=== PATIENT | female | born 1990 | race Caucasian/White ===

== ENCOUNTER 2016-09-03 03:27 | Emergency (ER) | payer MEDICAID, OTHER ==
[~2016-09-03] VITALS: Ht 157.5 cm; Wt 42.5 kg
[~2016-09-03 03:27] MED LIST: BENT20TA PO; ZOFR4TAB PO
[2016-09-03 03:32] VITALS: BP 126/79; PULSE 120; RESP 16; TEMP 97.9; O2SAT 99
[2016-09-03] MEDS ORDERED: SODIUM CHLOR 0.9% 1000 ML INJ 1,000 ML IV ONE ×2 (04:40→07:45)
[2016-09-03 05:01] LABS: AUTOMATED NEUTROPHIL # 10.2 TH/MM3 (1.8-7.7); BASOPHIL # 0.1 TH/MM3 (0-0.2); BASOPHIL % 0.5 % (0.0-2.0); EOSINOPHIL # 0.1 TH/MM3 (0-0.4); EOSINOPHIL % 0.9 % (0.0-4.0); HEMATOCRIT 35.1 % (35.0-46.0); HEMO FLAGS DIFF FINAL; MEAN CORPUSCULAR HEMOGLOBIN 30.1 PG (27.0-34.0); MEAN CORPUSCULAR HGB CONC 33.8 % (32.0-36.0); MONO % 6.6 % (0.0-8.0); PLATELET COUNT 304 TH/MM3 (150-450); RED BLOOD COUNT 3.94 MIL/MM3 (4.00-5.30); RED CELL DISTRIBUTION WIDTH 14.2 % (11.6-17.2); WHITE BLOOD COUNT 15.4 TH/MM3 (4.0-11.0)
[2016-09-03 05:19] LABS: ANION GAP 11 MEQ/L (5-15); AST (GOT) 16 U/L (15-37); BICARBONATE 23.2 MEQ/L (21.0-32.0); BLOOD UREA NITROGEN 7 MG/DL (7-18); CHLORIDE 105 MEQ/L (98-107); GLOMERULAR FILTRATION RATE 139 ML/MIN (>89); POTASSIUM 3.3 MEQ/L (3.5-5.1); SODIUM (NA) 139 MEQ/L (136-145)
[2016-09-03 05:27] LABS: BLOOD, URINE LARGE (NEG); COMMENT (UR) CULTURE INDICATED; CULTURE IF INDICATED CULTURE INDICATED; GLUCOSE,URINE NEG (NEG); KETONE, URINE TRACE mg/dL (NEG); MUCUS URINE FEW /lpf (OCC); NITRITE,URINE NEG (NEG)
[2016-09-03 05:29] LABS: URINE COLOR RED (YELLW/STRAW)
--- NOTE | 2016-09-03 05:34 | PD ---
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 3-4 days later she began to have vaginal bleeding that is continued since then. She reports that there are days when she will pass blood clots. She reports that this is her fourth or fifth . She reports that she has miscarried every . The patient reports having pelvic cramping associated with this. The patient denies any recent fevers, cough, congestion, neck pain, chest pain, shortness of breath, vomiting, diarrhea, urinary symptoms, or neurologic symptoms. LMP: PFSH Past Medical History Narrative Medical The patient's past medical history is significant for asthma, depression, migraine headaches, bipolar disorder Asthma: Yes Depression: Yes Diminished Hearing: No Immunizations Current: Yes Migraines: Yes ?: : 5 Para: 0 Miscarriage: 4 Past Surgical History Narrative Surgical The patient's past surgical history is significant for right elbow ORIF, rectum reconstruction at . Abdominal Surgery: Yes (rectum reconstruction at ) Other Surgery: Yes (abd surgery ( scar)) Social History Alcohol Use: Yes (HEAVY) Tobacco Use: Yes (half a pack a day ) Substance Use: No (cocaine, jerrod, THC ) Allergies-Medications (Allergen,Severity, Reaction): Coded Allergies: Amoxicillin (Verified Allergy, Severe, 09/03/16) Reported Meds & Prescriptions Reported Meds & Active Scripts Active Bentyl (Dicyclomine HCl) 20 Mg Tab 20 Mg PO TID PRN Zofran (Ondansetron HCl) 4 Mg Tab 4 Mg PO Q6HR PRN Review of Systems Except as stated in HPI: all other systems reviewed are Neg General / Constitutional: No: Fever Eyes: No: Visual changes HENT: No: Headaches Cardiovascular: No: Chest Pain or Discomfort Respiratory: No: Shortness of Breath Gastrointestinal: Positive: Abdominal Pain, No: Nausea, Vomiting, Diarrhea Genitourinary: No: Dysuria Musculoskeletal: No: Pain Skin: No Rash Neurologic: No: Weakness Psychiatric: No: Depression Endocrine: No: Polydipsia Hematologic/Lymphatic: No: Easy Bruising Physical Exam Narrative General: The patient is a well-developed well-nourished female in no acute distress. Head and Neck exam: Head is normocephalic atraumatic. Eyes: EOMI, pupils are equal round and reactive to light. Nose: Midline septum with pink mucous membranes Mouth: Dentition unremarkable. Moist mucus membranes. Posterior oropharynx is not erythematous. No tonsillar hypertrophy. Uvula midline. Airway patent. Neck: No palpable lymphadenopathy. No nuchal rigidity. No thyromegaly. Cardiovascular: Sinus tachycardia in the low 100s without murmurs, gallops, or rubs. No pulse deficit to the extremities and simultaneous auscultation and palpation of her radial artery. Lungs: Clear to auscultation bilaterally. No wheezes, rhonchi, or rales. Abdomen: Soft, without tenderness to palpation in all 4 quadrants of the abdomen. No guarding, rebound, or rigidity. Normal bowel sounds are audible. Extremities: No clubbing, cyanosis, or edema. 2+ pulses in all 4 extremities. No calf tenderness on palpation. Back: No spinous process tenderness to palpation. No costovertebral angle tenderness to palpation. Neurologic Exam: Grossly nonfocal. Skin Exam: No rash noted. Intact skin that is warm and dry. Gynecologic exam: The patient was placed in the dorsal lithotomy position. Her external genitalia were examined. She had no evidence of rash or lesions. The speculum was placed into her vagina and the cervix was identified. She had a mild amount of bloody drainage pooling in the posterior vaginal vault. No cervical friability. On Bimanual exam: she has no cervical motion tenderness. Cervix is closed. No adnexal tenderness or prominence noted on palpation. No uterine tenderness or enlargement noted on palpation. Data Data Last Documented VS Vital Signs Date Time Temp Pulse Resp B/P Pulse Ox O2 Delivery O2 Flow Rate FiO2 09/03/16 03:32 97.9 120 16 126/79 99 Orders Beta Hcg (Quant/Titer) (09/03/16 04:40) Complete Blood Count With Diff (09/03/16 04:40) Comprehensive Metabolic Panel (09/03/16 04:40) Gc And Chlamydia Pcr (09/03/16 04:40) Type And Screen (09/03/16 04:40) Wet Prep Profile (09/03/16 04:40) Urinalysis - C+S If Indicated (09/03/16 04:40) Iv Access Insert/Monitor (09/03/16 04:40) Ecg Monitoring (09/03/16 04:40) Sodium Chlor 0.9% 1000 Ml Inj (Ns 1000 M (09/03/16 04:40) Ed Urine Pregnancytest Poc (09/03/16 04:40) Urine Culture (09/03/16 04:45) Us Pelvis (Ques Pr/Ect)W Trans (09/03/16 06:07) Labs Laboratory Tests Test 09/03/16 09/03/16 04:45 05:19 White Blood Count 15.4 TH/MM3 Red Blood Count 3.94 MIL/MM3 Hemoglobin 11.9 GM/DL Hematocrit 35.1 % Mean Corpuscular Volume 89.0 FL Mean Corpuscular Hemoglobin 30.1 PG Mean Corpuscular Hemoglobin 33.8 % Concent Red Cell Distribution Width 14.2 % Platelet Count 304 TH/MM3 Mean Platelet Volume 8.0 FL Neutrophils (%) (Auto) 66.0 % Lymphocytes (%) (Auto) 26.0 % Monocytes (%) (Auto) 6.6 % Eosinophils (%) (Auto) 0.9 % Basophils (%) (Auto) 0.5 % Neutrophils # (Auto) 10.2 TH/MM3 Lymphocytes # (Auto) 4.0 TH/MM3 Monocytes # (Auto) 1.0 TH/MM3 Eosinophils # (Auto) 0.1 TH/MM3 Basophils # (Auto) 0.1 TH/MM3 CBC Comment DIFF FINAL Differential Comment Urine Color RED Urine Turbidity HAZY Urine pH 5.0 Urine Specific [place] 1.020 Urine Protein 30 mg/dL Urine Glucose (UA) NEG mg/dL Urine Ketones TRACE mg/dL Urine Occult Blood LARGE Urine Nitrite NEG Urine Bilirubin NEG Urine Urobilinogen LESS THAN 2.0 MG/DL Urine Leukocyte Esterase SMALL Urine RBC /hpf Urine WBC 106 /hpf Urine Mucus FEW /lpf Microscopic Urinalysis Comment CULTURE INDICATED Sodium Level 139 MEQ/L Potassium Level 3.3 MEQ/L Chloride Level 105 MEQ/L Carbon Dioxide Level 23.2 MEQ/L Anion Gap 11 MEQ/L Blood Urea Nitrogen 7 MG/DL Creatinine 0.54 MG/DL Estimat Glomerular Filtration 139 ML/MIN Rate Random Glucose 87 MG/DL Calcium Level 9.0 MG/DL Total Bilirubin 0.2 MG/DL Aspartate Amino Transf 16 U/L (AST/SGOT) Alanine Aminotransferase 14 U/L (ALT/SGPT) Alkaline Phosphatase 40 U/L Total Protein 7.6 GM/DL Albumin 3.9 GM/DL Human Chorionic Gonadotropin, 56672 MIU/ML Quant Blood Type A POSITIVE Antibody Screen NEGATIVE Blood Bank Comment Clue Cells (Wet Prep) NONE SEEN Vaginal Trichomonas (Wet Prep) NONE SEEN Vaginal Yeast (Wet Prep) NONE SEEN MDM Medical Decision Making Medical Screen Exam Complete: Yes Emergency Medical Condition: Yes Medical Record Reviewed: Yes Differential Diagnosis Ectopic , versus miscarriage, versus subchorionic hemorrhage, versus menstrual cycle Narrative Course During the course of the patients emergency department visit, the patients history, examination, and differential diagnosis were reviewed with the patient. The patient had IV access obtained and blood work sent for analysis. The patient was placed on a cardiac sonographer with oximetry and blood pressure monitoring. An ultrasound to evaluate and rule out ectopic has been ordered. The patient was provided normal saline 1 L IV fluid bolus. The patients laboratory studies were reviewed and remarkable for a white count of 15.4, hemoglobin 11.9, platelets 304 with a normal differential, CMP is remarkable for potassium of 3.3 which was supplemented orally, alkaline phosphatase 40, beta hCG is 84,492, urinalysis shows red urine, 30 protein, trace ketones, large occult blood, small leukocyte esterase, RBCs innumerable, wbc's 106, culture indicated. Wet prep is negative. The patient was given Macrobid 1 by mouth 1 for UTI. The patient's ultrasound is pending at the conclusion of my shift. This will be checked out to the oncoming emergency physician disposition after the conclusion of the patient's workup. Mili Zafar MD Sep 03, 2016 05:34
[2016-09-03 05:36] LABS: ALKALINE PHOSPHATASE 40 U/L (45-117); ALT (GPT) 14 U/L (10-53); BETA HCG QUANT 84492 MIU/ML (0-5); TOTAL BILIRUBIN ADULT 0.2 MG/DL (0.2-1.0)
[2016-09-03] MEDS ORDERED: NITROFURANTOIN MONOHYD MACROCR 100 MG CAP PO ONE (07:00)
[2016-09-03 07:31] VITALS: BP 88/44; PULSE 95; RESP 15; TEMP 97.7; O2SAT 96
[2016-09-03 07:35] LABS: CHLAMYDIA PCR NOT DETECTED (NOT DETECT); NEISSERIA PCR NOT DETECTED (NOT DETECT)
[2016-09-03 08:00] VITALS: BP 97/51; PULSE 96; RESP 15; O2SAT 96
[2016-09-03 09:00] VITALS: BP 85/48; PULSE 87; RESP 15; O2SAT 97
[2016-09-03] MEDS ORDERED: MACR100C2 PO (09:14)
--- NOTE | 2016-09-03 09:16 | PD ---
Physical Exam Date Seen by Provider: Sep 03, 2016 Time Seen by Provider: 07:30 Narrative Patient initially seen and evaluated by Dr. Zafar. She is , having vaginal bleeding, abdomen is otherwise benign. She has an ultrasound pending. Patient's blood pressures on the low side and IV fluid was given in the ER. Laboratory Tests Test 09/03/16 04:45 White Blood Count 15.4 TH/MM3 (4.0-11.0) Red Blood Count 3.94 MIL/MM3 (4.00-5.30) Neutrophils # (Auto) 10.2 TH/MM3 (1.8-7.7) Monocytes # (Auto) 1.0 TH/MM3 (0-0.9) Urine Color RED (YELLW/STRAW) Urine Turbidity HAZY (CLEAR) Urine Protein 30 mg/dL (NEG-TRACE) Urine Ketones TRACE mg/dL (NEG) Urine Occult Blood LARGE (NEG) Urine Leukocyte Esterase SMALL (NEG) Urine WBC 106 /hpf (0-5) Urine Mucus FEW /lpf (OCC) Potassium Level 3.3 MEQ/L (3.5-5.1) Alkaline Phosphatase 40 U/L (45-117) Human Chorionic Gonadotropin, 10580 MIU/ML Quant (0-5) Lab work shows stable H&H. On reevaluation after IV fluids, blood pressures are improved. Patient is not in any acute distress. Ultrasound shows IUP with good heart tones, measurements for 8 weeks. 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 Return for any worsening in bleeding, pain, and as needed. Pelvic rest, nothing in the vagina. The plan was discussed with the patient and she states understanding. In addition, I have also talked her regarding not drinking alcohol during . Patient states understanding. In addition, patient' s UA did show some blood and some white blood cells and bacteria questionable for underlying UTI as well. As per discussion with Dr. Zafar, Macrobid was given to the patient for possible underlying UTI. Data Data Last Documented VS Vital Signs Date Time Temp Pulse Resp B/P Pulse Ox O2 Delivery O2 Flow Rate FiO2 09/03/16 08:00 96 15 97/51 96 Room Air 09/03/16 07:31 97.7 Orders Beta Hcg (Quant/Titer) (09/03/16 04:40) Complete Blood Count With Diff (2/7/17 04:40) Comprehensive Metabolic Panel (09/03/16 04:40) Gc And Chlamydia Pcr (09/03/16 04:40) Type And Screen (09/03/16 04:40) Wet Prep Profile (09/03/16 04:40) Urinalysis - C+S If Indicated (09/03/16 04:40) Iv Access Insert/Monitor (09/03/16 04:40) Ecg Monitoring (09/03/16 04:40) Sodium Chlor 0.9% 1000 Ml Inj (Ns 1000 M (09/03/16 04:40) Ed Urine Pregnancytest Poc (09/03/16 04:40) Urine Culture (09/03/16 04:45) Nitrofurantoin Monohyd Macrocr (Macrobid (09/03/16 07:00) Sodium Chlor 0.9% 1000 Ml Inj (Ns 1000 M (09/03/16 07:45) Us Pelvis (Ques Preg/Ectopic) (09/03/16 06:07) Labs Laboratory Tests Test 09/03/16 09/03/16 04:45 05:19 White Blood Count 15.4 TH/MM3 Red Blood Count 3.94 MIL/MM3 Hemoglobin 11.9 GM/DL Hematocrit 35.1 % Mean Corpuscular Volume 89.0 FL Mean Corpuscular Hemoglobin 30.1 PG Mean Corpuscular Hemoglobin 33.8 % Concent Red Cell Distribution Width 14.2 % Platelet Count 304 TH/MM3 Mean Platelet Volume 8.0 FL Neutrophils (%) (Auto) 66.0 % Lymphocytes (%) (Auto) 26.0 % Monocytes (%) (Auto) 6.6 % Eosinophils (%) (Auto) 0.9 % Basophils (%) (Auto) 0.5 % Neutrophils # (Auto) 10.2 TH/MM3 Lymphocytes # (Auto) 4.0 TH/MM3 Monocytes # (Auto) 1.0 TH/MM3 Eosinophils # (Auto) 0.1 TH/MM3 Basophils # (Auto) 0.1 TH/MM3 CBC Comment DIFF FINAL Differential Comment Urine Color RED Urine Turbidity HAZY Urine pH 5.0 Urine Specific [place] 1.020 Urine Protein 30 mg/dL Urine Glucose (UA) NEG mg/dL Urine Ketones TRACE mg/dL Urine Occult Blood LARGE Urine Nitrite NEG Urine Bilirubin NEG Urine Urobilinogen LESS THAN 2.0 MG/DL Urine Leukocyte Esterase SMALL Urine RBC /hpf Urine WBC 106 /hpf Urine Mucus FEW /lpf Microscopic Urinalysis Comment CULTURE INDICATED Sodium Level 139 MEQ/L Potassium Level 3.3 MEQ/L Chloride Level 105 MEQ/L Carbon Dioxide Level 23.2 MEQ/L Anion Gap 11 MEQ/L Blood Urea Nitrogen 7 MG/DL Creatinine 0.54 MG/DL Estimat Glomerular Filtration 139 ML/MIN Rate Random Glucose 87 MG/DL Calcium Level 9.0 MG/DL Total Bilirubin 0.2 MG/DL Aspartate Amino Transf 16 U/L (AST/SGOT) Alanine Aminotransferase 14 U/L (ALT/SGPT) Alkaline Phosphatase 40 U/L Total Protein 7.6 GM/DL Albumin 3.9 GM/DL Human Chorionic Gonadotropin, 33456 MIU/ML Quant Blood Type A POSITIVE Antibody Screen NEGATIVE Blood Bank Comment Clue Cells (Wet Prep) NONE SEEN Vaginal Trichomonas (Wet Prep) NONE SEEN Vaginal Yeast (Wet Prep) NONE SEEN Chlamydia trachomatis DNA NOT DETECTED (PCR) Neisseria gonorrhoeae DNA NOT DETECTED (PCR) MDM Medical Record Reviewed: Yes Supervised Visit with KATE: No Diagnosis Primary Impression: THREATENED Additional Impression: UTI (urinary tract infection) Med/Other Pt SpecificInfo: Prescription(s) given Scripts Nitrofurantoin Monohydrate Macrocrystals (Macrobid)100 Mg Mnb700 Mg PO BID 5 Days Ref 0 Prov:Edgardo Carlton MD 09/03/16 Disposition: 01 DISCHARGE HOME Condition: Stable Edgardo Carlton MD Sep 03, 2016 09:15
--- NOTE | 2016-09-03 09:17 | RADRPT ---
EXAM DATE/TIME: 09/03/2016 07:48 [place] COMPARISON: No previous studies available for comparison. INDICATIONS : Vaginal bleeding. LAB(S): Beta-hC,492 MEDICAL HISTORY : . Substance abuse. SURGICAL HISTORY : Rectal reconstruction at . ENCOUNTER: Initial ACUITY: 3 weeks PAIN SCORE: 3/10 LOCATION: Bilateral pelvis MEASUREMENTS: UTERUS: 10.1 x 7.0 x 11.3 cm ENDOMETRIAL STRIPE: >20 mm RIGHT OVARY: 3.1 x 1.7 x 1.7 cm LEFT OVARY: 3.0 x 1.5 x 2.3 cm FINDINGS: UTERUS: There is a single intrauterine present. The crown-rump length corresponds to an 8 week 6 da y menstrual age. A small yolk sac was noted and there was a heart rate of 182 beats per minute. Adjacent to the intrauterine is a large complex hypoechoic area measuring up to 5.6 x 5.2 x 7.1 cm. RIGHT OVARY: Ovary contains no mass or significant cystic lesion. LEFT OVARY: Ovary contains no mass or significant cystic lesion. MISCELLANEOUS: Small amount of fluid in the cul-de-sac. CONCLUSION: 1. Single early intrauterine corresponding to an approximate 8 week 6 day menstrual age. Fe rafael heart rate of 92 beats per minute was obtained. 2. Large complex hypoechoic area adjacent to the intrauterine likely representing a subchor ionic hemorrhage. 3. Small amount of fluid in the cul-de-sac. Ruddy Branch MD on September 03, 2016 at 9:13 Board Certified Radiologist. This report was verified electronically.
[2016-09-03 09:30] VITALS: BP 86/49; PULSE 95; RESP 15; O2SAT 97
== END 2016-09-03 10:00 | disposition home or self-care (01) ==
LOC: NEPC 03:27
DX: O20.0 Threatened abortion (principal); O23.41 Unspecified infection of urinary tract in pregnancy, first trimester; O99.331 Smoking (tobacco) complicating pregnancy, first trimester; F17.210 Nicotine dependence, cigarettes, uncomplicated; J45.909 Unspecified asthma, uncomplicated
CPT/HCPCS: 76700; 80053; 81001; 84702; 84703; 85025; 86850; 86900; 86901; 87086; 87210; 87491; 87591; 96360; 99284; J7030

== ENCOUNTER 2016-09-17 00:42 | Emergency (ER) | payer MEDICAID, OTHER ==
[~2016-09-17 00:42] MED LIST changes: +MACR100C2 PO
[2016-09-17 00:44] VITALS: BP 123/78; PULSE 88; RESP 18; TEMP 97.8; O2SAT 100
[2016-09-17 02:44] LABS: AUTOMATED NEUTROPHIL # 13.5 TH/MM3 (1.8-7.7); BASOPHIL % 0.1 % (0.0-2.0); EOSINOPHIL # 0.2 TH/MM3 (0-0.4); EOSINOPHIL % 1.1 % (0.0-4.0); HEMATOCRIT 31.8 % (35.0-46.0); HEMO FLAGS DIFF FINAL; LYMPH % 10.8 % (9.0-44.0); LYMPHOCYTE # 1.8 TH/MM3 (1.0-4.8); MEAN CELL VOLUME 88.8 FL (80.0-100.0); MEAN CORPUSCULAR HEMOGLOBIN 29.8 PG (27.0-34.0); MEAN CORPUSCULAR HGB CONC 33.6 % (32.0-36.0); MONO % 5.5 % (0.0-8.0); NEUT % 82.5 % (16.0-70.0); PLATELET COUNT 270 TH/MM3 (150-450); RED BLOOD COUNT 3.58 MIL/MM3 (4.00-5.30); RED CELL DISTRIBUTION WIDTH 14.5 % (11.6-17.2); WHITE BLOOD COUNT 16.4 TH/MM3 (4.0-11.0)
[2016-09-17 03:10] LABS: ALT (GPT) 12 U/L (10-53); ANION GAP 9 MEQ/L (5-15); AST (GOT) 15 U/L (15-37); BICARBONATE 23.7 MEQ/L (21.0-32.0); BLOOD UREA NITROGEN 10 MG/DL (7-18); CHLORIDE 105 MEQ/L (98-107); GLOMERULAR FILTRATION RATE 208 ML/MIN (>89); POTASSIUM 3.6 MEQ/L (3.5-5.1); SODIUM (NA) 138 MEQ/L (136-145)
[2016-09-17 03:16] VITALS: BP 101/58; PULSE 80; RESP 18; O2SAT 99
[2016-09-17 03:29] LABS: ALKALINE PHOSPHATASE 40 U/L (45-117); BETA HCG QUANT 72555 MIU/ML (0-5); TOTAL BILIRUBIN ADULT 0.3 MG/DL (0.2-1.0)
[2016-09-17 03:58] LABS: BLOOD, URINE MOD (NEG); COMMENT (UR) CULT NOT INDICATED; CULTURE IF INDICATED CULT NOT INDICATED; GLUCOSE,URINE NEG (NEG); KETONE, URINE 40 mg/dL (NEG); MUCUS URINE FEW /lpf (OCC); NITRITE,URINE NEG (NEG); PH, URINE 6.5 (5.0-8.5); SQUAMOUS EPITHELIAL CELL URINE <1 /hpf (0-5); URINE COLOR YELLOW (YELLW/STRAW)
--- NOTE | 2016-09-17 04:52 | PD ---
HPI Chief Complaint: Related Problem Time Seen by Provider: 04:48 Travel History International Travel<30 days: No Contact w/Intl Traveler<30days: No Traveled to known affect area: No History of Present Illness HPI 26-year-old female who is 9 weeks , has not yet obtained [employer], found out she was several weeks ago in the ER and had an ultrasound done at that time which shows IUP. She presents back to the ER today for ongoing pelvic pains, vaginal bleeding. Pain is currently an 8 out of 10. She denies any fevers, vomiting, or any other symptoms. Modifying Factors: None Associated Signs & Symptoms: , vaginal bleeding, pelvic pain ongoing for several weeks Risk Factors: None PFSH Past Medical History Asthma: Yes Depression: Yes Diminished Hearing: No Immunizations Current: Yes Migraines: Yes ?: Unknown LMP: DEC??? : 5 Para: 0 Miscarriage: 4 Past Surgical History Abdominal Surgery: Yes (rectum reconstruction at ) Other Surgery: Yes (abd surgery ( scar)) Social History Alcohol Use: Yes (y) Tobacco Use: Yes (half a pack a day ) Substance Use: Yes (weed) Allergies-Medications (Allergen,Severity, Reaction): Coded Allergies: Amoxicillin (Verified Allergy, Severe, 09/17/16) Reported Meds & Prescriptions Reported Meds & Active Scripts Active Review of Systems Except as stated in HPI: all other systems reviewed are Neg Physical Exam Narrative GENERAL: Well-nourished, well-developed young white female patient who is sleeping, doesn't want to wake up on evaluation. Oriented 3. SKIN: Warm and dry. HEAD: Normocephalic. EYES: No scleral icterus. No injection or drainage. NECK: Supple, trachea midline. CARDIOVASCULAR: Regular rate and rhythm without murmurs, gallops, or rubs. RESPIRATORY: Breath sounds equal bilaterally. No accessory muscle use. GASTROINTESTINAL: Abdomen soft, mild lower abdominal pelvic tenderness without guarding or rebound, there is a palpable right pelvic mass which is mildly tender palpation, with no guarding or rebound, nondistended. GENITOURINARY: Normal external genitalia without lesions or erythema. Vaginal vault small amount of dark blood with no drainage. Cervical os was closed without drainage. No cervical motion tenderness. Uterus nontender, gravid, and appropriately enlarged. MUSCULOSKELETAL: No cyanosis, or edema. BACK: Nontender without obvious deformity. No CVA tenderness. Data Data Last Documented VS Vital Signs Date Time Temp Pulse Resp B/P Pulse Ox O2 Delivery O2 Flow Rate FiO2 09/17/16 03:16 80 18 101/58 99 Room Air 09/17/16 00:44 97.8 Orders Beta Hcg (Quant/Titer) (09/17/16 02:07) Complete Blood Count With Diff (09/17/16 02:07) Comprehensive Metabolic Panel (09/17/16 02:07) Urinalysis - C+S If Indicated (09/17/16 02:07) Us Pelvis Comp W Doppler (09/17/16 05:26) Labs Laboratory Tests Test 09/17/16 09/17/16 02:22 03:35 White Blood Count 16.4 TH/MM3 Red Blood Count 3.58 MIL/MM3 Hemoglobin 10.7 GM/DL Hematocrit 31.8 % Mean Corpuscular Volume 88.8 FL Mean Corpuscular Hemoglobin 29.8 PG Mean Corpuscular Hemoglobin 33.6 % Concent Red Cell Distribution Width 14.5 % Platelet Count 270 TH/MM3 Mean Platelet Volume 8.3 FL Neutrophils (%) (Auto) 82.5 % Lymphocytes (%) (Auto) 10.8 % Monocytes (%) (Auto) 5.5 % Eosinophils (%) (Auto) 1.1 % Basophils (%) (Auto) 0.1 % Neutrophils # (Auto) 13.5 TH/MM3 Lymphocytes # (Auto) 1.8 TH/MM3 Monocytes # (Auto) 0.9 TH/MM3 Eosinophils # (Auto) 0.2 TH/MM3 Basophils # (Auto) 0.0 TH/MM3 CBC Comment DIFF FINAL Differential Comment Sodium Level 138 MEQ/L Potassium Level 3.6 MEQ/L Chloride Level 105 MEQ/L Carbon Dioxide Level 23.7 MEQ/L Anion Gap 9 MEQ/L Blood Urea Nitrogen 10 MG/DL Creatinine 0.38 MG/DL Estimat Glomerular Filtration 208 ML/MIN Rate Random Glucose 83 MG/DL Calcium Level 8.3 MG/DL Total Bilirubin 0.3 MG/DL Aspartate Amino Transf 15 U/L (AST/SGOT) Alanine Aminotransferase 12 U/L (ALT/SGPT) Alkaline Phosphatase 40 U/L Total Protein 6.7 GM/DL Albumin 3.5 GM/DL Human Chorionic Gonadotropin, 81099 MIU/ML Quant Urine Color YELLOW Urine Turbidity CLEAR Urine pH 6.5 Urine Specific [place] 1.020 Urine Protein NEG mg/dL Urine Glucose (UA) NEG mg/dL Urine Ketones 40 mg/dL Urine Occult Blood MOD Urine Nitrite NEG Urine Bilirubin NEG Urine Urobilinogen LESS THAN 2.0 MG/DL Urine Leukocyte Esterase NEG Urine RBC 2 /hpf Urine WBC 1 /hpf Urine Squamous Epithelial <1 /hpf Cells Urine Mucus FEW /lpf Microscopic Urinalysis Comment CULT NOT INDICATED MDM Medical Decision Making Medical Screen Exam Complete: Yes Emergency Medical Condition: Yes Medical Record Reviewed: Yes Interpretation(s) Laboratory Tests Test 09/17/16 09/17/16 02:22 03:35 White Blood Count 16.4 TH/MM3 (4.0-11.0) Red Blood Count 3.58 MIL/MM3 (4.00-5.30) Hemoglobin 10.7 GM/DL (11.6-15.3) Hematocrit 31.8 % (35.0-46.0) Neutrophils (%) (Auto) 82.5 % (16.0-70.0) Neutrophils # (Auto) 13.5 TH/MM3 (1.8-7.7) Creatinine 0.38 MG/DL (0.50-1.00) Calcium Level 8.3 MG/DL (8.5-10.1) Alkaline Phosphatase 40 U/L (45-117) Human Chorionic Gonadotropin, 55788 MIU/ML Quant (0-5) Urine Ketones 40 mg/dL (NEG) Urine Occult Blood MOD (NEG) Urine Mucus FEW /lpf (OCC) Differential Diagnosis , pelvic pains, vaginal bleedingthreatened AB versus completed AB versus UTI versus mass versus appendicitis Narrative Course IV fluids, pain medications, and Zofran was given in the ER. Pelvic exam shows that her os is closed. Transabdominal ultrasound done by me shows IUP with good heart tones. Official ultrasound was ordered for further evaluation of the as well as the right pelvic area of tenderness. Procedures Procedure Narrative Transabdominal ultrasound done by me shows IUP with good heart tones. Physician Communication Physician Communication Case is signed out at [address] Argueta awaiting ultrasound. Disposition based on ultrasound. Diagnosis Primary Impression: THREATENED Condition: Stable Edgardo Carlton MD Sep 17, 2016 04:52
--- NOTE | 2016-09-17 08:17 | PD ---
Physical Exam Narrative Received sign out from previous team to follow up on ultrasound results. 26yo F who is 9 weeks with lower abdominal pain for a few weeks. Pt is resting comfortably when I entered the room. Abdomen is soft, +TTP suprapubic and pelvic region. No rebound tenderness or guarding. Labs reviewed, leukocytosis at 16.4 which is about the same as 15.4 on 09/03/16. H/H low at 10.7/31.8, decreased mildly from 11.9/35.1 on 09/03/16. bHCG 95830 which is decreased from 63563 on 09/03/16. US showed single intrauterine gestation at 10 weeks and 6 days. FHR 183. Persistent large subchorionic hemorrhage is presents that is slightly increased in size than prior. Pt's pain improved with acetaminophen. No RLQ pain. Pain is more suprapubic and pelvic region. Pt instructed to follow up with OBGYN and return to the ED if symptoms worsen. Data Data Last Documented VS Vital Signs Date Time Temp Pulse Resp B/P Pulse Ox O2 Delivery O2 Flow Rate FiO2 09/17/16 03:16 80 18 101/58 99 Room Air 09/17/16 00:44 97.8 Orders Beta Hcg (Quant/Titer) (09/17/16 02:07) Complete Blood Count With Diff (09/17/16 02:07) Comprehensive Metabolic Panel (09/17/16 02:07) Urinalysis - C+S If Indicated (09/17/16 02:07) Us Pelvis Preg(Sgl/ Gestat) (09/17/16 05:26) Acetaminophen (Tylenol) (09/17/16 09:30) Labs Laboratory Tests Test 09/17/16 09/17/16 02:22 03:35 White Blood Count 16.4 TH/MM3 Red Blood Count 3.58 MIL/MM3 Hemoglobin 10.7 GM/DL Hematocrit 31.8 % Mean Corpuscular Volume 88.8 FL Mean Corpuscular Hemoglobin 29.8 PG Mean Corpuscular Hemoglobin 33.6 % Concent Red Cell Distribution Width 14.5 % Platelet Count 270 TH/MM3 Mean Platelet Volume 8.3 FL Neutrophils (%) (Auto) 82.5 % Lymphocytes (%) (Auto) 10.8 % Monocytes (%) (Auto) 5.5 % Eosinophils (%) (Auto) 1.1 % Basophils (%) (Auto) 0.1 % Neutrophils # (Auto) 13.5 TH/MM3 Lymphocytes # (Auto) 1.8 TH/MM3 Monocytes # (Auto) 0.9 TH/MM3 Eosinophils # (Auto) 0.2 TH/MM3 Basophils # (Auto) 0.0 TH/MM3 CBC Comment DIFF FINAL Differential Comment Sodium Level 138 MEQ/L Potassium Level 3.6 MEQ/L Chloride Level 105 MEQ/L Carbon Dioxide Level 23.7 MEQ/L Anion Gap 9 MEQ/L Blood Urea Nitrogen 10 MG/DL Creatinine 0.38 MG/DL Estimat Glomerular Filtration 208 ML/MIN Rate Random Glucose 83 MG/DL Calcium Level 8.3 MG/DL Total Bilirubin 0.3 MG/DL Aspartate Amino Transf 15 U/L (AST/SGOT) Alanine Aminotransferase 12 U/L (ALT/SGPT) Alkaline Phosphatase 40 U/L Total Protein 6.7 GM/DL Albumin 3.5 GM/DL Human Chorionic Gonadotropin, 94832 MIU/ML Quant Urine Color YELLOW Urine Turbidity CLEAR Urine pH 6.5 Urine Specific [place] 1.020 Urine Protein NEG mg/dL Urine Glucose (UA) NEG mg/dL Urine Ketones 40 mg/dL Urine Occult Blood MOD Urine Nitrite NEG Urine Bilirubin NEG Urine Urobilinogen LESS THAN 2.0 MG/DL Urine Leukocyte Esterase NEG Urine RBC 2 /hpf Urine WBC 1 /hpf Urine Squamous Epithelial <1 /hpf Cells Urine Mucus FEW /lpf Microscopic Urinalysis Comment CULT NOT INDICATED MDM Supervised Visit with KATE: No Diagnosis Primary Impression: THREATENED Patient Instructions: General Instructions Departure Forms: Tests/Procedures Additional Instruction: Please follow up with your OBGYN in 1-2 days. Return to the ED if symptoms worsen. Med/Other Pt SpecificInfo: Prescription(s) given Scripts Acetaminophen (Acetaminophen Extra Strength)500 Mg [id number] Mg PO Q6H PRN (PAIN SCALE 1 TO 4) #20 TAB Ref 0 Prov:Zeinab Argueta 09/17/16 Disposition: 01 DISCHARGE HOME Condition: Stable Zeinab Argueta Sep 17, 2016 08:17
--- NOTE | 2016-09-17 09:13 | RADRPT ---
EXAM DATE/TIME: 09/17/2016 07:44 [place] COMPARISON: US PELVIS ([facility] PREG/ECTOPIC), September 03, 2016, 7:48. No previous studies available for compariso n. INDICATIONS : Vaginal bleeding. LAB(S): Beta-hC,555 MEDICAL HISTORY : History of miscarriage. Depression. Migraine. Asthma. SURGICAL HISTORY : Rectum reconstruction at . ENCOUNTER: Subsequent ACUITY: 2 weeks PAIN SCORE: 4/10 LOCATION: Bilateral pelvis MEASUREMENTS: UTERUS: 12.2 x 7.1 x 11.3 cm ENDOMETRIAL STRIPE: >20 mm RIGHT OVARY: 4.1 x 1.9 x 1.6 cm LEFT OVARY: 3.9 x 1.4 x 1.3 cm FINDINGS: UTERUS: There is a single intrauterine gestational sac identified measuring 4.9 x 5.6 x 2.9 cm. Fetus is iden tified with crown-rump length measurement of 3.89 cm consistent with a gestational age of 10 weeks an d 6 days. M-mode Doppler was utilized documented heart rate of 183 beats per minute. There is a persistent heterogeneous hypoechoic structure surrounding the gestational sac measuring approximatel y 9.5 x 6.1 x 7.9 cm currently compared to 5.6 x 5.2 x 7.1 cm on the prior examination. This material demonstrates no internal color flow. RIGHT OVARY: Ovary contains no mass or significant cystic lesion. LEFT OVARY: Ovary contains no mass or significant cystic lesion. MISCELLANEOUS: No free fluid. CONCLUSION: 1. There is a single intrauterine gestation identified with estimated age of 10 weeks and 6 days. Fet al heart rate of 183 beats per minute is documented. 2. Persistent large subchorionic hemorrhage is present with measurements given above. It has slightly increased in size since the prior study dated 09/03/2016. Hola Salazar MD on September 17, 2016 at 8:48 Board Certified Radiologist. This report was verified electronically.
[2016-09-17] MEDS ORDERED: ACET500T36 PO (09:29)
[2016-09-17] MEDS ORDERED: ACETAMINOPHEN 325 MG TAB PO ONE (09:30)
[2016-09-17 10:10] VITALS: BP 97/50; PULSE 88; RESP 16; O2SAT 98
== END 2016-09-17 10:24 | disposition home or self-care (01) ==
LOC: NEPE 00:42
DX: O20.0 Threatened abortion (principal); R10.2 Pelvic and perineal pain; N93.9 Abnormal uterine and vaginal bleeding, unspecified; J45.909 Unspecified asthma, uncomplicated; F17.210 Nicotine dependence, cigarettes, uncomplicated; F12.90 Cannabis use, unspecified, uncomplicated
CPT/HCPCS: 76801; 80053; 81001; 84702; 85025

== ENCOUNTER 2016-09-28 17:14 | Emergency (ER) | payer MEDICAID ==
[~2016-09-28] VITALS: Ht 157.5 cm; Wt 45.0 kg
[~2016-09-28 17:14] MED LIST changes: +ACET500T36 PO; -BENT20TA PO; -MACR100C2 PO; -ZOFR4TAB PO
[2016-09-28 17:16] VITALS: BP 165/93; PULSE 74; RESP 16; TEMP 98.2; O2SAT 98
--- NOTE | 2016-09-28 17:59 | PD ---
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 Last menstrual period 07/04/16 which by dates makes her approximately 12 weeks. States that she has had 2 other instances of bleeding this . States that the symptoms today began about 4 hours ago. She is also complaining of painful urination. States that she did follow-up with her NEW CAR DRIVER Dr. Echevarria last week. Denies fever, chills, nausea, vomiting, diarrhea, vaginal discharge. PFSH Past Medical History Asthma: Yes Depression: Yes Diminished Hearing: No Immunizations Current: Yes Migraines: Yes ?: LMP: 07/04/2016 : 3 Para: 0 Miscarriage: 2 Past Surgical History Abdominal Surgery: Yes (rectum reconstruction at ) Other Surgery: Yes (abd surgery ( scar)) Social History Alcohol Use: Yes (on occasion) Tobacco Use: Yes (half a pack a day ) Substance Use: Yes (weed weekly) Allergies-Medications (Allergen,Severity, Reaction): Coded Allergies: Amoxicillin (Verified Allergy, Severe, 09/26/16) Reported Meds & Prescriptions Reported Meds & Active Scripts Active Acetaminophen Extra Strength (Acetaminophen) 500 Mg Tab 500 Mg PO Q6H PRN Review of Systems Except as stated in HPI: all other systems reviewed are Neg Physical Exam Narrative GENERAL: Well-nourished and well-developed pleasant patient in no acute distress who is nontoxic appearing. SKIN: Warm and dry. HEAD: Normocephalic and atraumatic. EYES: No injection, drainage, or hyphema noted. PERRLA. EOMI. ENT: No nasal drainage noted. Oropharynx is clear. NECK: Supple and the trachea is midline. CARDIOVASCULAR: Regular rate and rhythm. RESPIRATORY: Breath sounds are equal bilaterally with no accessory muscle use, wheezing, rhonchi, or crackles. GASTROINTESTINAL: Abdomen is soft, non-tender, and nondistended. GENITOURINARY: Normal external genitalia without lesions or erythema. Vaginal vault with mild amount of blood Cervical os was closed without drainage. No cervical motion tenderness. Uterus nontender and nonenlarged. Bilateral adnexa nontender without masses. MUSCULOSKELETAL: No obvious deformities, swelling, cyanosis, or ecchymosis is present throughout the upper and lower extremities. Patient has full range of motion without any signs of neurovascular compromise. NEUROLOGICAL: Awake, alert, and oriented. Normal speech and gait. Cranial nerves are grossly intact. Data Data Last Documented VS Vital Signs Date Time Temp Pulse Resp B/P Pulse Ox O2 Delivery O2 Flow Rate FiO2 09/28/16 17:46 85 18 09/28/16 17:16 98.2 165/93 98 Orders Urinalysis - C+S If Indicated (09/28/16 17:56) Acetaminophen (Tylenol) (09/28/16 18:00) Urine Culture (09/28/16 18:39) Labs Laboratory Tests Test 09/28/16 18:39 Urine Color DARK-RED Urine Turbidity CLOUDY Urine pH 6.5 Urine Specific [place] 1.025 Urine Protein 100 mg/dL Urine Glucose (UA) NEG mg/dL Urine Ketones 10 mg/dL Urine Occult Blood LARGE Urine Nitrite NEG Urine Bilirubin NEG Urine Urobilinogen LESS THAN 2.0 MG/DL Urine Leukocyte Esterase SMALL Urine RBC /hpf Urine WBC 15 /hpf Urine Bacteria FEW /hpf Microscopic Urinalysis Comment CULTURE INDICATED MDM Medical Decision Making Medical Screen Exam Complete: Yes Emergency Medical Condition: Yes Differential Diagnosis Threatened miscarriage versus bleeding in early versus UTI Narrative Course 26-year-old female approximately 12 weeks presents to the emergency department for evaluation of vaginal bleeding and cramping. Patient is afebrile , vital signs are stable. Abdominal examination is essentially benign. She does have bleeding but the cervix is closed. My attending physician performed a bedside ultrasound confirming intrauterine with heart rate of 174 bpm. Urinalysis is consistent with urinary tract infection and the patient will be placed on Macrobid. This is a threatened . Patient is placed on pelvic rest. Instructed to follow-up with her NEW CAR DRIVER. I discussed the case with my attending physician who is aware of the patients history, physical examination findings, and treatment plan. 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 Pelvic rest. Take medications as prescribed with food and a full glass of water. Follow-up with your NEW CAR DRIVER. Return to the ED for any acute worsening of symptoms. Med/Other Pt SpecificInfo: Prescription(s) given Scripts Nitrofurantoin Monohydrate Macrocrystals (Macrobid)100 Mg [id number] Mg PO BID 10 Days Ref 0 Prov:Jonathan Chakraborty MD 09/28/16 Disposition: 01 DISCHARGE HOME Condition: Stable Kourtney Chen Sep 28, 2016 17:59
[2016-09-28] MEDS ORDERED: ACETAMINOPHEN 500 MG CPLT PO ONE (18:00)
[2016-09-28 20:16] LABS: BLOOD, URINE LARGE (NEG); GLUCOSE,URINE NEG (NEG); KETONE, URINE 10 mg/dL (NEG); NITRITE,URINE NEG (NEG); PH, URINE 6.5 (5.0-8.5)
[2016-09-28 20:19] LABS: COMMENT (UR) CULTURE INDICATED; CULTURE IF INDICATED CULTURE INDICATED; URINE COLOR DARK-RED (YELLW/STRAW)
[2016-09-28 20:20] LABS: BACTERIA, URINE FEW /hpf
[2016-09-28] MEDS ORDERED: MACR100C2 PO (20:29)
[2016-09-28] MEDS ORDERED: ONDANSETRON ODT 4 MG TAB PO ONE (21:15)
--- NOTE | 2016-10-16 11:05 | PD ---
Data Data Orders Urinalysis - C+S If Indicated (09/28/16 17:56) Acetaminophen (Tylenol) (09/28/16 18:00) Urine Culture (09/28/16 18:39) Ondansetron Odt (Zofran Odt) (09/28/16 21:15) MDM Supervised Visit with KATE: Yes Procedures Procedure Narrative Transabdominal bedside ultrasound: Using the curvilinear ultrasound probe, transabdominal exam was performed and shows a large IUP with heart rate of 174 bpm. 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 Pelvic rest. Take medications as prescribed with food and a full glass of water. 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 Return to the ED for any acute worsening of symptoms. Scripts Nitrofurantoin Monohydrate Macrocrystals (Macrobid)100 Mg [id number] Mg PO BID 10 Days Ref 0 Prov:Jonathan Chakraborty MD 09/28/16 Disposition: 01 DISCHARGE HOME Condition: Stable Jonathan Chakraborty MD Oct 16, 2016 11:05
== END 2016-09-28 21:20 | disposition home or self-care (01) ==
LOC: NEPC 17:14
DX: O20.0 Threatened abortion (principal); O23.41 Unspecified infection of urinary tract in pregnancy, first trimester; Z3A.12 12 weeks gestation of pregnancy
CPT/HCPCS: 81001; 87086; 99284

== ENCOUNTER 2016-10-02 19:04 | Emergency (ER) | payer MEDICAID ==
[~2016-10-02] VITALS: Ht 157.5 cm; Wt 44.0 kg
[~2016-10-02 19:04] MED LIST changes: +MACR100C2 PO
[2016-10-02 19:06] VITALS: BP 112/68; PULSE 82; RESP 18; TEMP 97.6; O2SAT 99
--- NOTE | 2016-10-02 21:23 | PD ---
HPI Chief Complaint: Related Problem Time Seen by Provider: 21:23 Travel History International Travel<30 days: No Contact w/Intl Traveler<30days: No Traveled to known affect area: No History of Present Illness HPI 26-year-old female presents to the emergency department for evaluation of abdominal cramping and bleeding during . Patient states she is approximately 12 weeks . She is a G3, P0 with 2 previous miscarriages. The patient states that she has had bleeding for approximate 4 days. However , within the past 4 hours, the bleeding has worsened. She reports going through approximately 4 pads per hour. The patient also states her abdominal cramping has worsened. Patient was seen here approximate 4 days ago and an intrauterine was noted at that time. Patient states she is only taking Macrobid that was prescribed for UTI. She takes no other prescribed medications. PFSH Past Medical History Asthma: Yes Depression: Yes Diminished Hearing: No Immunizations Current: Yes Migraines: Yes Tetanus Vaccination: Unknown Influenza Vaccination: No ?: LMP: JUN 2016 : 3 Para: 0 Miscarriage: 2 Past Surgical History Abdominal Surgery: Yes (rectum reconstruction at ) Other Surgery: Yes (abd surgery ( scar)) Social History Alcohol Use: Yes (on occasion) Tobacco Use: Yes (half a pack a day ) Substance Use: Yes (weed weekly) Allergies-Medications (Allergen,Severity, Reaction): Coded Allergies: Amoxicillin (Verified Allergy, Severe, 10/02/16) Reported Meds & Prescriptions Reported Meds & Active Scripts Active Macrobid (Nitrofurantoin Monoh/Nitrofur Macro) 100 Mg Cap 100 Mg PO BID 10 Days Acetaminophen Extra Strength (Acetaminophen) 500 Mg Tab 500 Mg PO Q6H PRN Review of Systems Except as stated in HPI: all other systems reviewed are Neg Physical Exam Narrative GENERAL: Well-developed well-nourished female patient, afebrile. SKIN: Warm and dry. HEAD: Normocephalic. Atraumatic EYES: No scleral icterus. No injection or drainage. NECK: Supple, trachea midline. No JVD or lymphadenopathy. CARDIOVASCULAR: Regular rate and rhythm without murmurs, gallops, or rubs. RESPIRATORY: Breath sounds equal bilaterally. No accessory muscle use. Lungs sounds are clear to auscultation. GASTROINTESTINAL: Abdomen soft and nondistended. Patient has tenderness over suprapubic region to palpation. MUSCULOSKELETAL: No cyanosis, or edema. BACK: Nontender without obvious deformity. No CVA tenderness. Data Data Last Documented VS Vital Signs Date Time Temp Pulse Resp B/P Pulse Ox O2 Delivery O2 Flow Rate FiO2 10/02/16 22:00 105 18 123/73 98 Room Air 10/02/16 19:06 97.6 Orders Basic Metabolic Panel (Bmp) (10/02/16 21:21) Complete Blood Count With Diff (10/02/16 21:21) Type And Screen (10/02/16 21:21) Drug Screen, Random Urine (10/02/16 21:21) Urinalysis - C+S If Indicated (10/02/16 21:21) Beta Hcg (Quant/Titer) (10/02/16 21:23) Ondansetron Inj (Zofran Inj) (10/02/16 21:44) Morphine Inj (Morphine Inj) (10/02/16 21:44) Morphine Inj (Morphine Inj) (10/02/16 22:00) Ondansetron Inj (Zofran Inj) (10/02/16 22:00) Sodium Chlor 0.9% 1000 Ml Inj (Ns 1000 M (10/02/16 22:00) MDM Medical Decision Making Medical Screen Exam Complete: Yes Emergency Medical Condition: Yes Medical Record Reviewed: Yes Differential Diagnosis Spontaneous versus threatened versus anemia versus retained products of conception Narrative Course 26-year-old female presents to the emergency department for evaluation of bleeding during for 4 days, worsening in the past 4 hours. On my initial exam, the patient stated she had only passed blood clots. However, when I returned to completely ultrasound, the patient was in the bathroom stating she had just passed the fetus. There is approximately 12 week fetus noted on her feminine pad. Patient is placed in bed and pelvic exam is completed. Placenta and products of conception are removed without difficulty. The cervical os is slightly blue and open. My attending physician, Dr. Wilson, was with me during this exam. Products of conception are placed in a specimen cup and taken to microbiology. CBC, BMP, type and screen, UDS, UA are ordered and pending. Patient is given normal saline 1 L IV bolus, morphine 4 mg IV, Zofran 4 mg IV. I spoke to Dr. Amaya, OB hospitalist on-call who recommends prescribing the patient Methergine 0.2mg PO Q4 hours for 24 hours. Labs are still pending. Dr. Wilson will follow up on care and disposition of patient. Scripts Methylergonovine (Methergine)0.2 Mg Tab0.2 Mg PO Q4HR #6 TAB Ref 0 Prov:Edel Cook 10/02/16 Edel Cook Oct 02, 2016 21:23
[2016-10-02] MEDS ORDERED: ONDANSETRON HCL 4 MG/2 ML VIAL ONE (21:44)
[2016-10-02] MEDS ORDERED: MORPHINE SULFATE 8 MG/ML INJ ONE (21:44)
[2016-10-02 22:00] VITALS: BP 123/73; PULSE 105; RESP 18; O2SAT 98
[2016-10-02] MEDS ORDERED: SODIUM CHLOR 0.9% 1000 ML INJ 1,000 ML IV ONE (22:00)
[2016-10-02] MEDS ORDERED: ONDANSETRON HCL 4 MG/2 ML VIAL IV PUSH ONE (22:00)
[2016-10-02] MEDS ORDERED: MORPHINE SULFATE 4 MG/ML INJ IV PUSH ONE ×2 (22:00→23:30)
[2016-10-02] MEDS ORDERED: METH-703 PO (22:49)
[2016-10-02 22:53] VITALS: BP 127/73; PULSE 104; RESP 16; O2SAT 96
[2016-10-02 22:57] LABS: BASOPHIL # 0.1 TH/MM3 (0-0.2); BASOPHIL % 0.3 % (0.0-2.0); HEMO FLAGS DIFF FINAL; LYMPH % 1.9 % (9.0-44.0); LYMPHOCYTE # 0.4 TH/MM3 (1.0-4.8); MEAN CELL VOLUME 90.7 FL (80.0-100.0); MEAN CORPUSCULAR HEMOGLOBIN 30.5 PG (27.0-34.0); MEAN CORPUSCULAR HGB CONC 33.7 % (32.0-36.0); MONO % 5.2 % (0.0-8.0); NEUT % 92.6 % (16.0-70.0); PLATELET COUNT 207 TH/MM3 (150-450); RED BLOOD COUNT 3.31 MIL/MM3 (4.00-5.30); RED CELL DISTRIBUTION WIDTH 14.6 % (11.6-17.2); WHITE BLOOD COUNT 21.6 TH/MM3 (4.0-11.0)
[2016-10-02 23:13] LABS: BICARBONATE 23.7 MEQ/L (21.0-32.0); POTASSIUM 3.4 MEQ/L (3.5-5.1)
[2016-10-02 23:25] LABS: AMPHETAMINE, URINE NEG (NEG); BACTERIA, URINE RARE /hpf; BARBITURATES, URINE NEG (NEG); BLOOD, URINE LARGE (NEG); COCAINE, URINE NEG (NEG); COMMENT (UR) CULTURE INDICATED; CULTURE IF INDICATED CULTURE INDICATED; GLUCOSE,URINE NEG (NEG); KETONE, URINE 80 mg/dL (NEG); MUCUS URINE FEW /lpf (OCC); NITRITE,URINE NEG (NEG); SQUAMOUS EPITHELIAL CELL URINE 3 /hpf (0-5); URINE COLOR YELLOW (YELLW/STRAW)
[2016-10-02 23:30] LABS: BETA HCG QUANT 28297 MIU/ML (0-5)
--- NOTE | 2016-10-02 23:43 | PD ---
Physical Exam Date Seen by Provider: Oct 02, 2016 Time Seen by Provider: 23:40 Narrative Patient is a 26-year-old female who was initially evaluated by the mid-level provider, please refer to the initial history, physical, diagnostic evaluation, and treatment modality plan. Data Data Last Documented VS Vital Signs Date Time Temp Pulse Resp B/P Pulse Ox O2 Delivery O2 Flow Rate FiO2 10/02/16 23:00 16 10/02/16 22:53 104 127/73 96 Room Air 10/02/16 19:06 97.6 Orders Basic Metabolic Panel (Bmp) (10/02/16 21:21) Complete Blood Count With Diff (10/02/16 21:21) Type And Screen (10/02/16 21:21) Drug Screen, Random Urine (10/02/16 21:21) Urinalysis - C+S If Indicated (10/02/16 21:21) Beta Hcg (Quant/Titer) (10/02/16 21:23) Ondansetron Inj (Zofran Inj) (10/02/16 21:44) Morphine Inj (Morphine Inj) (10/02/16 21:44) Morphine Inj (Morphine Inj) (10/02/16 22:00) Ondansetron Inj (Zofran Inj) (10/02/16 22:00) Sodium Chlor 0.9% 1000 Ml Inj (Ns 1000 M (10/02/16 22:00) Morphine Inj (Morphine Inj) (10/02/16 23:30) Urine Culture (10/02/16 22:55) Labs Laboratory Tests Test 10/02/16 10/02/16 22:39 22:55 White Blood Count 21.6 TH/MM3 Red Blood Count 3.31 MIL/MM3 Hemoglobin 10.1 GM/DL Hematocrit 30.0 % Mean Corpuscular Volume 90.7 FL Mean Corpuscular Hemoglobin 30.5 PG Mean Corpuscular Hemoglobin 33.7 % Concent Red Cell Distribution Width 14.6 % Platelet Count 207 TH/MM3 Mean Platelet Volume 8.2 FL Neutrophils (%) (Auto) 92.6 % Lymphocytes (%) (Auto) 1.9 % Monocytes (%) (Auto) 5.2 % Eosinophils (%) (Auto) 0.0 % Basophils (%) (Auto) 0.3 % Neutrophils # (Auto) 20.0 TH/MM3 Lymphocytes # (Auto) 0.4 TH/MM3 Monocytes # (Auto) 1.1 TH/MM3 Eosinophils # (Auto) 0.0 TH/MM3 Basophils # (Auto) 0.1 TH/MM3 CBC Comment DIFF FINAL Differential Comment Sodium Level 139 MEQ/L Potassium Level 3.4 MEQ/L Chloride Level 106 MEQ/L Carbon Dioxide Level 23.7 MEQ/L Anion Gap 9 MEQ/L Blood Urea Nitrogen 7 MG/DL Creatinine 0.29 MG/DL Estimat Glomerular Filtration 284 ML/MIN Rate Random Glucose 92 MG/DL Calcium Level 7.7 MG/DL Human Chorionic Gonadotropin, 22114 MIU/ML Quant Blood Type A POSITIVE Antibody Screen NEGATIVE Urine Color YELLOW Urine Turbidity HAZY Urine pH 6.0 Urine Specific [place] 1.019 Urine Protein TRACE mg/dL Urine Glucose (UA) NEG mg/dL Urine Ketones 80 mg/dL Urine Occult Blood LARGE Urine Nitrite NEG Urine Bilirubin NEG Urine Urobilinogen LESS THAN 2.0 MG/DL Urine Leukocyte Esterase MOD Urine RBC 162 /hpf Urine WBC 13 /hpf Urine Squamous Epithelial 3 /hpf Cells Urine Bacteria RARE /hpf Urine Mucus FEW /lpf Microscopic Urinalysis Comment CULTURE INDICATED Urine Opiates Screen POS Urine Barbiturates Screen NEG Urine Amphetamines Screen NEG Urine Benzodiazepines Screen NEG Urine Cocaine Screen NEG Urine Cannabinoids Screen POS MDM Medical Record Reviewed: Yes Supervised Visit with KATE: Yes Interpretation(s) Laboratory Tests Test 10/02/16 10/02/16 22:39 22:55 White Blood Count 21.6 TH/MM3 Red Blood Count 3.31 MIL/MM3 Hemoglobin 10.1 GM/DL Hematocrit 30.0 % Mean Corpuscular Volume 90.7 FL Mean Corpuscular Hemoglobin 30.5 PG Mean Corpuscular Hemoglobin 33.7 % Concent Red Cell Distribution Width 14.6 % Platelet Count 207 TH/MM3 Mean Platelet Volume 8.2 FL Neutrophils (%) (Auto) 92.6 % Lymphocytes (%) (Auto) 1.9 % Monocytes (%) (Auto) 5.2 % Eosinophils (%) (Auto) 0.0 % Basophils (%) (Auto) 0.3 % Neutrophils # (Auto) 20.0 TH/MM3 Lymphocytes # (Auto) 0.4 TH/MM3 Monocytes # (Auto) 1.1 TH/MM3 Eosinophils # (Auto) 0.0 TH/MM3 Basophils # (Auto) 0.1 TH/MM3 CBC Comment DIFF FINAL Differential Comment Sodium Level 139 MEQ/L Potassium Level 3.4 MEQ/L Chloride Level 106 MEQ/L Carbon Dioxide Level 23.7 MEQ/L Anion Gap 9 MEQ/L Blood Urea Nitrogen 7 MG/DL Creatinine 0.29 MG/DL Estimat Glomerular Filtration 284 ML/MIN Rate Random Glucose 92 MG/DL Calcium Level 7.7 MG/DL Human Chorionic Gonadotropin, 72159 MIU/ML Quant Blood Type A POSITIVE Antibody Screen NEGATIVE Urine Color YELLOW Urine Turbidity HAZY Urine pH 6.0 Urine Specific [place] 1.019 Urine Protein TRACE mg/dL Urine Glucose (UA) NEG mg/dL Urine Ketones 80 mg/dL Urine Occult Blood LARGE Urine Nitrite NEG Urine Bilirubin NEG Urine Urobilinogen LESS THAN 2.0 MG/DL Urine Leukocyte Esterase MOD Urine RBC 162 /hpf Urine WBC 13 /hpf Urine Squamous Epithelial 3 /hpf Cells Urine Bacteria RARE /hpf Urine Mucus FEW /lpf Microscopic Urinalysis Comment CULTURE INDICATED Urine Opiates Screen POS Urine Barbiturates Screen NEG Urine Amphetamines Screen NEG Urine Benzodiazepines Screen NEG Urine Cocaine Screen NEG Urine Cannabinoids Screen POS Differential Diagnosis Differential diagnosis includes threatened AB, incomplete AB, complete AB, UTI, cervicitis, PID. Narrative Course I, Dr. Wilson, have reviewed the advance practice practitioner's documentation and am in agreement, met with the patient face to face, made the diagnosis, and the medical decision making was done by me. *My assessment and Findings: The patient is a 26-year-old female was initially evaluated by the mid-level provider. Please refer to the initial history, physical, diagnostic evaluation, and treatment modality plan. The patient had a miscarriage in the emergency department bathroom, while using the restroom. The patient delivered an approximately 12 week old fetus. The patient was placed on a stretcher, pelvic exam was performed, and remaining placental tissue was removed with Joyd forceps. The cervix was identified, was open, bluish in color, and there were a few blood clots removed. The patient is a monitor for further progressive bleeding. The patient's bleeding significantly slowed. The OB hospitalists was called by the mid-level provider who recommended discharge with Methergine. The patient was administered morphine and Zofran for her pain and discomfort and was observed in the emergency department for 4 hours for monitoring of significant vaginal bleeding. The patient was reassured observed at 2:25 AM, she states she had no further bleeding. The patient's pain has improved and she is hungry. The patient be discharged home. 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 Return if symptoms worsen or progress or he have significant vaginal bleeding. Work excuse for 3 days. Scripts Methylergonovine (Methergine)0.2 Mg Tab0.2 Mg PO Q4HR #6 TAB Ref 0 Prov:JoeyEdel 10/02/16 Disposition: 01 DISCHARGE HOME Condition: Stable Ryan Wilson MD Oct 02, 2016 23:43
[2016-10-03 02:54] VITALS: BP 99/56; PULSE 68; RESP 16; O2SAT 98
== END 2016-10-03 03:25 | disposition home or self-care (01) ==
LOC: NEPE 19:04
DX: O03.9 Complete or unspecified spontaneous abortion without complication (principal); F17.200 Nicotine dependence, unspecified, uncomplicated; Z87.09 Personal history of other diseases of the respiratory system; Z86.59 Personal history of other mental and behavioral disorders; Z86.69 Personal history of other diseases of the nervous system and sense organs; Z3A.12 12 weeks gestation of pregnancy
CPT/HCPCS: 80048; 80307; 81001; 84702; 85025; 86850; 86900; 86901; 87086; 88305; 96361; 96374; 96375; 96376; 99284; J2270; J2405; J7030

== ENCOUNTER 2016-11-22 18:39 | Emergency (ER) | payer SELFPAY ==
[~2016-11-22] VITALS: Ht 157.5 cm; Wt 44.0 kg
[2016-11-22 19:01] VITALS: BP 115/70; PULSE 87; RESP 18; TEMP 98.3; O2SAT 100
--- NOTE | 2016-11-22 19:30 | PD ---
HPI Chief Complaint: Bleeding Time Seen by Provider: 19:07 Travel History International Travel<30 days: No Contact w/Intl Traveler<30days: No Traveled to known affect area: No History of Present Illness HPI 26yo F with PMH of anxiety, depression presents to the ED with c/o vaginal bleeding since June but worst today. Pt had blood clots as well and using 4 -5 pads a day. Pt had complete 10/02/16 but has not followed up with [employer]. Denies any fever, chest pain, sob, n/v, abdominal pain, vaginal discharge. Denies any vaginal trauma. PFSH Past Medical History Asthma: Yes Depression: Yes Cardiovascular Problems: Yes (irregular) Cerebrovascular Accident: Yes (TIA?) Diminished Hearing: No Respiratory: Yes (asthma) Immunizations Current: Yes Migraines: Yes ?: Not LMP: current? : 3 Para: 0 Miscarriage: 2 Past Surgical History Abdominal Surgery: Yes (rectum reconstruction at ) Other Surgery: Yes (abd surgery ( scar)) Social History Alcohol Use: Yes (on occasion) Tobacco Use: Yes (half a pack a day ) Substance Use: Yes (weed weekly) Allergies-Medications (Allergen,Severity, Reaction): Coded Allergies: Amoxicillin (Verified Allergy, Severe, 10/24/16) Reported Meds & Prescriptions Reported Meds & Active Scripts Active No Active Prescriptions or Reported Medications Review of Systems Except as stated in HPI: all other systems reviewed are Neg Physical Exam Narrative GENERAL: 26yo F not in distress. SKIN: Focused skin assessment warm/dry. HEAD: Atraumatic. Normocephalic. EYES: Pupils equal and round. No scleral icterus. No injection or drainage. ENT: No nasal bleeding or discharge. Mucous membranes pink and moist. NECK: Trachea midline. No JVD. CARDIOVASCULAR: Regular rate and rhythm. No murmur appreciated. RESPIRATORY: No accessory muscle use. Clear to auscultation. Breath sounds equal bilaterally. GASTROINTESTINAL: Abdomen soft, NT/ND. No rebound tenderness or guarding. PELVIC: +Large amount of blood clots in the vaginal vault. I was able to evaluate the blood clots and visualize the cervix. No laceration or bleeding from the vaginal wall. Cervical os is closed. No CMT or adnexal tenderness. MUSCULOSKELETAL: No obvious deformities. No clubbing. No cyanosis. No edema. NEUROLOGICAL: Awake and alert. No obvious cranial nerve deficits. Motor grossly within normal limits. Normal speech. PSYCHIATRIC: Appropriate mood and affect; insight and judgment normal. Data Data Last Documented VS Vital Signs Date Time Temp Pulse Resp B/P Pulse Ox O2 Delivery O2 Flow Rate FiO2 11/22/16 19:01 98.3 87 18 115/70 100 Orders Complete Blood Count With Diff (11/22/16 19:15) Basic Metabolic Panel (Bmp) (11/22/16 19:15) Prothrombin Time / Inr (Pt) (11/22/16 19:15) Act Partial Throm Time (Ptt) (11/22/16 19:15) Type And Screen (11/22/16 19:15) Bhcg Screen Qualitative (11/22/16 19:15) Urinalysis - C+S If Indicated (11/22/16 19:34) Ed Urine Pregnancytest Poc (11/22/16 19:34) Labs Laboratory Tests Test 11/22/16 11/22/16 19:25 19:34 White Blood Count 7.0 TH/MM3 Red Blood Count 3.07 MIL/MM3 Hemoglobin 8.5 GM/DL Hematocrit 25.6 % Mean Corpuscular Volume 83.4 FL Mean Corpuscular Hemoglobin 27.7 PG Mean Corpuscular Hemoglobin 33.2 % Concent Red Cell Distribution Width 15.2 % Platelet Count 401 TH/MM3 Mean Platelet Volume 7.6 FL Neutrophils (%) (Auto) 59.7 % Lymphocytes (%) (Auto) 27.6 % Monocytes (%) (Auto) 9.7 % Eosinophils (%) (Auto) 2.6 % Basophils (%) (Auto) 0.4 % Neutrophils # (Auto) 4.2 TH/MM3 Lymphocytes # (Auto) 1.9 TH/MM3 Monocytes # (Auto) 0.7 TH/MM3 Eosinophils # (Auto) 0.2 TH/MM3 Basophils # (Auto) 0.0 TH/MM3 CBC Comment DIFF FINAL Differential Comment Prothrombin Time 11.9 SEC Prothromb Time International 1.1 RATIO Ratio Activated Partial 25.7 SEC Thromboplast Time Sodium Level 141 MEQ/L Potassium Level 3.7 MEQ/L Chloride Level 110 MEQ/L Carbon Dioxide Level 24.7 MEQ/L Anion Gap 6 MEQ/L Blood Urea Nitrogen 11 MG/DL Creatinine 0.56 MG/DL Estimat Glomerular Filtration 133 ML/MIN Rate Random Glucose 92 MG/DL Calcium Level 8.3 MG/DL Beta HCG, Qualitative 2 MIU/ML Blood Type A POSITIVE Antibody Screen NEGATIVE Urine Color LIGHT-YELLOW Urine Turbidity CLEAR Urine pH 6.5 Urine Specific [place] 1.009 Urine Protein 100 mg/dL Urine Glucose (UA) NEG mg/dL Urine Ketones NEG mg/dL Urine Occult Blood MOD Urine Nitrite NEG Urine Bilirubin NEG Urine Urobilinogen LESS THAN 2.0 MG/DL Urine Leukocyte Esterase NEG Urine RBC /hpf Microscopic Urinalysis Comment CULT NOT INDICATED MDM Medical Decision Making Medical Screen Exam Complete: Yes Emergency Medical Condition: Yes Differential Diagnosis Vaginal laceration vs. menorrhagia vs. fibroids Narrative Course 26yo F with vaginal bleeding since June, states it was worst today. After removal of blood clots in the vaginal vault, pt states the bleeding has gotten much better. States she barely had any in her pad. Pt is well appearing and has no abdominal pain on exam. Labs reviewed, no leukocytosis. H/H is low at 8.5/25.6 which has decreased from 10.1/30.0 on 10/02/16. negative. UA showed mod blood. No leukocyte or nitrite. Pt is asymptomatic and denies any dizziness, chest pain, sob. Pt is hungry and eating. VS stable. Instructed pt to follow up with [employer] [employer] [employer] as soon as possible. Strict return precautions given. Diagnosis Primary Impression: Vaginal bleeding Referrals: Daisy Persaud MD call for appointment Vaginal bleeding Patient Instructions: General Instructions Departure Forms: Tests/Procedures Additional Instructions: Please follow up with your [employer] [employer] [facility] or our [facility] [employer] [facility] in 1-2 days. Return to the ED if symptoms worsen. Med/Other Pt SpecificInfo: No Change to Meds Scripts No Active Prescriptions or Reported Meds Disposition: DISCHARGE HOME Condition: Stable Zeinab Argueta DO Nov 22, 2016 19:30
[2016-11-22 19:50] LABS: AUTOMATED NEUTROPHIL # 4.2 TH/MM3 (1.8-7.7); BASOPHIL % 0.4 % (0.0-2.0); EOSINOPHIL # 0.2 TH/MM3 (0-0.4); EOSINOPHIL % 2.6 % (0.0-4.0); HEMATOCRIT 25.6 % (35.0-46.0); HEMO FLAGS DIFF FINAL; LYMPH % 27.6 % (9.0-44.0); LYMPHOCYTE # 1.9 TH/MM3 (1.0-4.8); MEAN CELL VOLUME 83.4 FL (80.0-100.0); MEAN CORPUSCULAR HEMOGLOBIN 27.7 PG (27.0-34.0); MEAN CORPUSCULAR HGB CONC 33.2 % (32.0-36.0); MONO % 9.7 % (0.0-8.0); NEUT % 59.7 % (16.0-70.0); PLATELET COUNT 401 TH/MM3 (150-450); RED BLOOD COUNT 3.07 MIL/MM3 (4.00-5.30); RED CELL DISTRIBUTION WIDTH 15.2 % (11.6-17.2)
[2016-11-22 20:09] LABS: APTT (PATIENT) 25.7 SEC (24.3-30.1); INTERNATIONAL NORMALIZED RATIO 1.1 RATIO; PROTHROMBIN TIME - PATIENT 11.9 SEC (9.8-11.6)
[2016-11-22 20:19] LABS: BICARBONATE 24.7 MEQ/L (21.0-32.0); POTASSIUM 3.7 MEQ/L (3.5-5.1)
[2016-11-22 20:44] LABS: BLOOD, URINE MOD (NEG); COMMENT (UR) CULT NOT INDICATED; CULTURE IF INDICATED CULT NOT INDICATED; GLUCOSE,URINE NEG (NEG); KETONE, URINE NEG (NEG); NITRITE,URINE NEG (NEG); PH, URINE 6.5 (5.0-8.5); URINE COLOR LIGHT-YELLOW (YELLW/STRAW)
== END 2016-11-22 22:36 | disposition home or self-care (01) ==
LOC: NEPC 18:39
DX: N93.9 Abnormal uterine and vaginal bleeding, unspecified (principal)
CPT/HCPCS: 80048; 81001; 84703; 85025; 85610; 85730; 86850; 86900; 86901; 99284

== ENCOUNTER 2018-04-04 09:48 | Inpatient (IN) ==
--- NOTE | 2018-04-04 10:13 | ED ---
History of Present Illness Primary Care Physician: No Primary Care Physician History of Present Illness: 28-year-old 7 para 0 AB 6 who is 41 weeks gestation by midtrimester ultrasound and comes in this morning with contractions since about 2 AM. She denies leakage of fluid or bleeding. Obstetrical history: She has had 6 spontaneous AB but did not require D&C. [facility]. She had prior care in [place]. No complications during the . She is GBS negative. Review of Systems All other systems reviewed negative except as stated in HPI [facility] - Medical History Medical History: Medical History (Last Updated 04/04/18 @ 10:12 by Miguel Dickerson MD) Asthma affecting in third trimester Congenital imperforate anus - Tobacco History Tobacco Use In Past 30 Days: Yes Smoking Status: Current every day smoker (4-5 cigarettes per day) - Alcohol History How Often Do You Have a Drink Containing Alcohol: 2 to 4 times a month - Travel History History of Recent Travel: No Recent Travel in the [place] Within the Last 8 Weeks: No Recent Travel Out of the Country Within the Last 8 Weeks: No Medications and Allergies Allergies Allergy/AdvReac Type Severity Reaction Status Date / Time amoxicillin Allergy Severe Anaphylaxis Verified 04/04/18 10:13 Home Medications Medication Instructions Recorded Confirmed Type PO 04/04/18 History albuterol sulfate INHALATION PRN PRN 04/04/18 History Exam Narrative: GENERAL: Well-nourished, well-developed patient. SKIN: Warm and dry. HEAD: Normocephalic and atraumatic. EYES: No scleral icterus. No injection or drainage. ENT: No nasal drainage noted. Mucous membranes pink. Airway patent. NECK: Supple, trachea midline. No JVD. CARDIOVASCULAR: Regular rate and rhythm without murmurs, gallops, or rubs. RESPIRATORY: Breath sounds equal bilaterally. No accessory muscle use. ABDOMEN/GI: Abdomen soft, non-tender, bowel sounds present, no rebound, no guarding Gravid to [-] weeks size Fundal Height: [-] GENITOURINARY: External Genitalia: intact and normal in appearance BUS glands: [-] Cervix: [-] Dilatation: [-2] Effacement: [50-] Station: [--3] Presentation: [-vtx] Membranes: [intact ] Uterine Contractions: [-Irregular] FHT's: Category: [1-] Baseline: [-120] Reactive: [y-] Variability: [mod EXTREMITIES: No cyanosis or edema. BACK: Nontender without obvious deformity. No CVA tenderness. NEUROLOGICAL: Awake and alert. Motor and sensory grossly within normal limits. Five out of 5 muscle strength in all muscle groups. Normal speech. Assessment and Plan - Plan Assessment: 28-year-old female at 41 weeks gestation in early labor, #2 history of asthma, #3 smoker Plan: Admit for labor management. Discharge Plan - Discharge Disposition Patient Disposition: 30 Still Patient - Physicians Team ED Provider: Jarod Lorenzo Primary Care Provider: Primary Care Elsi Ward - Rxs /Orders / Referrals /Forms Prescriptions: No Action albuterol sulfate Inhalation PRN PRN (Reason: Respiratory Distress) PO - Discharge Instructions Print Language: Norwegian
[2018-04-04] MEDS ORDERED: Sodium Chlor 0.9% Inj 500 ML IV.SIG PRN (10:20)
[2018-04-04] MEDS ORDERED: fentaNYL Citrate Inj 100 MCG/2 ML Ampul IV.PUSH PRN ×2 (10:20)
[2018-04-04] MEDS ORDERED: Oxytocin 30 Units/500ml Premix 30 UNITS/500 ML BAG IV.SIG ONE (10:20)
[2018-04-04] MEDS ORDERED: Naloxone Inj 0.4 MG/ML Vial IV.PUSH PRN ×2 (10:20→23:13)
[2018-04-04] MEDS ORDERED: Sod Chloride 0.9% Inj 1,000 ML IV.CONT PRN (10:20)
[2018-04-04] MEDS ORDERED: Citric Acid/Sodium Citrate Liq 30 ML UDC PO SCH (10:30)
[2018-04-04 11:04] LABS: Baso % (Auto) 0.4 % (0.0-2.0); Eos # (Auto) 0.1 th/mm3 (0.0-0.4); Eos % (Auto) 1.3 % (0.0-4.0); Hematocrit 40.4 % (35.0-46.0); Hemoglobin 13.8 gm/dL (11.6-15.3); Lymph # (Auto) 1.4 th/mm3 (1.0-4.8); Lymph % (Auto) 14.1 % (9.0-44.0); Mean Corpuscular HGB Conc 34.1 % (32.0-36.0); Mean Corpuscular Hemoglobin 32.7 pg (27.0-34.0); Mean Corpuscular Volume 95.8 fL (80.0-100.0); Mean Platelet Volume 10.3 fL (7.0-11.0); Mono # (Auto) 0.9 th/mm3 (0.0-0.9); Mono % (Auto) 8.7 % (0.0-8.0); Neut # (Auto) 7.8 th/mm3 (1.8-7.7); Neut % (Auto) 75.5 % (16.0-70.0); Platelet Count 185 th/mm3 (150-450); Red Blood Count 4.22 mil/mm3 (4.00-5.30); Red Cell Distribution Width 13.4 % (11.6-17.2); White Blood Count 10.3 th/mm3 (4.0-11.0)
[2018-04-04 11:40] LABS: Bilirubin,Urine Negative (Negative); Clarity,Urine Clear (Clear); Color,Urine Straw (Yellw/Straw); Glucose,Urine (UA) Negative (Negative); Leukocyte Esterase,Urine Negative (Negative); Mucus,Urine Few /lpf (Occasional); Nitrite,Urine Negative (Negative); Specific Gravity,Urine 1.006 (1.002-1.035); Squamous Epithelial Cell,Urine <1 /hpf (0-5)
[2018-04-04] MEDS ORDERED: Lidocaaine 1.5%/Epinephrine 1:200,000 PF Inj 5 ML Amp ONE (12:07)
[2018-04-04] MEDS ORDERED: Lidocaine PF 1% Inj 5 ML Vial ONE (12:07)
[2018-04-04] MEDS ORDERED: fentaNYL 2MCG-Bupiv 0.125% Epi 150 ML EPIDURAL ONE (12:17)
[2018-04-04] MEDS ORDERED: Oxytocin 30 Units/500ml Premix 30 UNITS/500 ML BAG IV.SIG PRN (12:46)
--- NOTE | 2018-04-04 12:49 | P.OBGPN ---
Labor note Patient notes persistent contractions. Category 1 heart rate, vital signs stable Irregular mild contractions Assessment: Prodromal labor with irregular hypotonic pattern Plan: Pitocin augmentation.
[2018-04-04] MEDS ORDERED: fentaNYL Citrate Inj 100 MCG/2 ML Ampul EPIDURAL ONE (14:30)
[2018-04-04] MEDS ORDERED: fentaNYL 2MCG-Bupiv 0.125% Epi 150 ML EPIDURAL PRN (14:30)
[2018-04-04 14:48] LABS: Amphetamine Screen,Urine Neg (Neg); Barbiturate Screen,Urine Neg (Neg); Cannabinoid Screen,Urine Pos (Neg); Cocaine Screen,Urine Neg (Neg)
[2018-04-04 14:59] LABS: Opiate Screen,Urine Neg (Neg)
[2018-04-04] MEDS ORDERED: Diphtheria/Tetanus/Pertussis Vaccine Inj 0.5 ML Syringe IM ONE (16:00)
[2018-04-04] MEDS ORDERED: Measles/Mumps/Rubella Vaccine Inj 0.5 ML Vial SQ ONE (16:00)
[2018-04-04] MEDS ORDERED: Lidocaine 1% Inj 50 ML Vial ONE (19:05)
--- NOTE | 2018-04-04 20:12 | P.OBGPN ---
S: Pt comfortable O:VSS,afeb, Cat2 FHR with mod shakir, accelerations noted cvx 8-9, SROM-clear A: progressing in active phase P: Cont current plan.
[2018-04-04] MEDS ORDERED: Witch Hazel 50%/Glyderin 12.5% 40 Pad Jar RECTAL PRN (23:13)
[2018-04-04] MEDS ORDERED: Zolpidem Tartrate 5 MG Tablet PO PRN (23:13)
[2018-04-04] MEDS ORDERED: Oxytocin 30 Units/500ml Premix 30 UNITS/500 ML BAG IV.CONT PRN (23:13)
[2018-04-04] MEDS ORDERED: Benzocaine 20% Top Spray 60 ML Can TOPICAL PRN (23:13)
[2018-04-04] MEDS ORDERED: Bisacodyl 10 MG Supp RECTAL PRN (23:13)
--- NOTE | 2018-04-04 23:13 | P.OBDELI ---
Weeks Gestation: 41 Active Labor Start Date: 04/04/18 Medical Induction of Labor: No Artificial Rupture of Membrane: No Anesthesia: Epidural Episiotomy: none Vaginal Delivery: Normal, Spontaneous Presentation: Occiput anterior Nuchal Cord: None Delayed Cord Clamping (45 sec): Yes Placenta: Spontaneous delivery, Intact Laceration: Vaginal, 2 deg Repair: Chromic running Estimated blood loss (mL): 200 : Male
[2018-04-04] MEDS: Acetaminophen 325 MG Tablet PO PRN (23:39)
[2018-04-05] MEDS: Senna/Docusate Sodium 8.6/50 MG Tablet PO SCH ×2 (08:29→21:11)
[2018-04-05] MEDS: Acetaminophen 325 MG Tablet PO PRN (08:29)
--- NOTE | 2018-04-05 09:23 | P.PNOB ---
Subjective Post day: 1 Interval history: 28 year old female s/p at 41 wks gestation, PPD1. AFVSS. Patient reports she is feeling well. Bleeding is decreasing and pain is well- controlled. She is breast feeding and bonding well with baby. Ambulating without difficulties. She is tolerating a diet without nausea or vomiting. She has not had a bowel movement. She has passed gas. Denies chest pain, dysuria, shortness of breath, or calf pain. Objective Vital Signs/I&O: Vital Signs 04/04/18 10:01 04/04/18 12:29 04/04/18 12:40 Temperature Pulse Rate 85 77 84 Respiratory Rate 20 Blood Pressure 120/80 141/91 H 121/84 04/04/18 12:45 04/04/18 12:50 04/04/18 12:55 Temperature 97.6 F Pulse Rate 87 93 H 79 Respiratory Rate 20 Blood Pressure 120/78 109/66 105/71 04/04/18 13:40 04/04/18 14:00 04/04/18 14:10 Temperature 97.7 F Pulse Rate 70 80 Respiratory Rate 18 Blood Pressure 108/71 104/59 L 04/04/18 14:25 04/04/18 14:50 04/04/18 15:00 Temperature 97.7 F Pulse Rate 64 75 104 H Respiratory Rate 16 Blood Pressure 96/62 L 102/74 04/04/18 15:05 04/04/18 15:30 04/04/18 15:40 Temperature Pulse Rate 78 85 94 H Respiratory Rate 16 Blood Pressure 99/62 L 108/73 106/66 04/04/18 15:55 04/04/18 16:00 04/04/18 16:55 Temperature 98.1 F Pulse Rate 79 86 Respiratory Rate 16 Blood Pressure 120/78 04/04/18 16:57 04/04/18 17:15 04/04/18 17:25 Temperature 98.3 F Pulse Rate 76 81 Respiratory Rate 18 Blood Pressure 117/84 108/68 04/04/18 17:55 04/04/18 18:00 04/04/18 18:10 Temperature 98.3 F Pulse Rate 76 62 Respiratory Rate 18 Blood Pressure 115/62 116/67 04/04/18 18:25 04/04/18 18:30 04/04/18 19:00 Temperature Pulse Rate 82 91 H 76 Respiratory Rate 16 Blood Pressure 125/86 04/04/18 19:10 04/04/18 19:12 04/04/18 19:20 Temperature 98.1 F Pulse Rate 82 83 Respiratory Rate 18 Blood Pressure 120/88 04/04/18 19:31 04/04/18 19:35 04/04/18 19:45 Temperature Pulse Rate 81 68 75 Respiratory Rate Blood Pressure 101/60 04/04/18 19:50 04/04/18 20:00 04/04/18 20:10 Temperature Pulse Rate 82 72 75 Respiratory Rate 18 Blood Pressure 114/74 04/04/18 20:20 04/04/18 20:25 04/04/18 20:31 Temperature Pulse Rate 78 82 101 H Respiratory Rate Blood Pressure 122/75 04/04/18 20:35 04/04/18 20:39 04/04/18 20:40 Temperature Pulse Rate 86 98 H Respiratory Rate 20 Blood Pressure 04/04/18 20:50 04/04/18 20:55 04/04/18 21:00 Temperature Pulse Rate 99 H 70 91 H Respiratory Rate Blood Pressure 136/82 04/04/18 21:10 04/04/18 21:15 04/04/18 21:20 Temperature 100.2 F H Pulse Rate 92 H 122 H 102 H Respiratory Rate 18 Blood Pressure 04/04/18 21:25 04/04/18 21:31 04/04/18 21:32 Temperature Pulse Rate 100 H 94 H 89 Respiratory Rate 18 Blood Pressure 111/63 04/04/18 21:40 04/04/18 21:45 04/04/18 22:55 Temperature Pulse Rate 98 H 85 88 Respiratory Rate Blood Pressure 04/04/18 23:17 04/04/18 23:18 04/04/18 23:30 Temperature 100.1 F H Pulse Rate 92 H 87 Respiratory Rate 20 Blood Pressure 119/74 117/68 04/04/18 23:39 04/04/18 23:45 04/04/18 23:57 Temperature Pulse Rate 94 H Respiratory Rate 16 18 Blood Pressure 112/69 04/05/18 00:00 04/05/18 00:15 04/05/18 00:30 Temperature 99.3 F Pulse Rate 106 H 106 H 97 H Respiratory Rate 18 Blood Pressure 114/74 115/59 L 117/61 04/05/18 00:45 04/05/18 02:00 04/05/18 08:15 Temperature 98.2 F 97.7 F Pulse Rate 74 70 Respiratory Rate 18 16 16 Blood Pressure 104/56 L 108/70 Intake & Output 04/04/18 04/05/18 04/05/18 18:59 06:59 18:59 Weight 57.606 kg Result Diagrams: 04/04/18 10:40 Objective Remarks: GENERAL: Well-nourished, well-developed patient. CARDIOVASCULAR: Regular rate and rhythm without murmurs, gallops, or rubs. RESPIRATORY: Breath sounds equal bilaterally. No accessory muscle use. ABDOMEN/GI: Abdomen soft, non-tender. Fundus: Firm, non-tender at umbilicus. GENITOURINARY: Light to moderate bleeding. EXTREMITIES: No cyanosis or edema, non-tender, without signs of DVT. Medications and IVs: Active Medications Acetaminophen (Tylenol) 650 mg PO Q4H PRN PRN Reason: PAIN SCALE 1 TO 2 Last Admin: 04/05/18 08:29 Dose: 650 mg Al Hydroxide/Mg Hydroxide (Milk Of Magnesia Liq) 30 ml PO Q12H PRN PRN Reason: Mild Constipation Benzocaine (Americaine 20% Top [place]) 1 spray TOPICAL Q4H PRN PRN Reason: For Perineum Discomfort Last Admin: 04/05/18 02:14 Dose: 1 spray Bisacodyl (Dulcolax Supp) 10 mg RECTAL DAILY PRN PRN Reason: SEVERE CONSITIPATION Citric Acid/Sodium Citrate (Sodium Citrate/Citric Acid Liq) 30 ml PO PEDIATRIC NP [facility] Stop: 04/08/18 10:29 Ephedrine Sulfate (Ephedrine/Ns Syringe) 10 mg IV.PUSH UNSCH PRN PRN Reason: SEE LABEL COMMENTS Stop: 04/05/18 14:13 Fentanyl Citrate (Fentanyl Inj) 100 mcg IV.PUSH Q1H PRN PRN Reason: PAIN SCALE 6 TO 10 Fentanyl Citrate (Fentanyl Inj) 50 mcg IV.PUSH Q1H PRN PRN Reason: Pain Scale 3 - 5 Lactated Ringer's (Lr 1000 Ml Inj) 1,000 mls @ 125 mls/hr IV.CONT .Q8H [facility] Last Admin: 04/04/18 23:37 Dose: 125 mls/hr Lactated Ringer's (Lr 1000 Ml Inj) 1,000 mls @ 3,000 mls/hr IV.SIG UNSCH PRN PRN Reason: compromise or epidural Last Admin: 04/04/18 12:12 Dose: 3,000 mls/hr Sodium Chloride (Ns Inj) 500 mls @ 1,000 mls/hr IV.SIG UNSCH PRN PRN Reason: SEE LABEL COMMENTS Sodium Chloride (Ns Inj) 1,000 mls @ 100 mls/hr IV.CONT .Q10H PRN PRN Reason: SEE LABEL COMMENTS Oxytocin (Pitocin 30 Units/Ns 500 Ml Premix) 30 units in 500 mls @ 2 mls/hr IV.SIG TITRATE PRN; Protocol PRN Reason: For induction of labor Last Admin: 04/04/18 13:05 Dose: 2 milliunit/min, 2 mls/hr Fentanyl/Bupivacaine/Sodium Chlor (Fentanyl 2 Mcg-Bupiv 0.125% Epi) 150 mls @ 12 mls/hr EPIDURAL UNSCH PRN PRN Reason: for Labor Pain Oxytocin (Pitocin 30 Units/Ns 500 Ml Premix) 30 units in 500 mls @ 100 mls/hr IV.CONT UNSCH PRN PRN Reason: Heavy bleeding Ibuprofen (Motrin) 800 mg PO Q8H PRN PRN Reason: For Cramping Lactulose (Lactulose Liq) 30 ml PO DAILY PRN PRN Reason: SEVERE CONSITIPATION Lidocaine HCl (Xylocaine 1% Inj) 0.1 ml I-DERMAL PRN PRN PRN Reason: For IV start Stop: 04/07/18 10:19 Lidocaine HCl (Xylocaine 1% Inj) 10 ml INFILTRATN PRN PRN PRN Reason: For episiotomy repair Stop: 04/06/18 10:19 Mineral Oil (Muri-Lube Oil) 10 ml TOPICAL PRN PRN PRN Reason: PRN perineal massage Miscellaneous Information (Misc Information) 1 each OTHER UNSCH PRN PRN Reason: SEE LABEL COMMENTS Stop: 04/05/18 14:13 Miscellaneous Information (Misc Information) 1 each OTHER UNSCH PRN PRN Reason: SEE LABEL COMMENTS Stop: 04/05/18 14:13 Naloxone HCl (Narcan Inj) 0.1 mg IV.PUSH Q2M PRN PRN Reason: for opiate reversal Naloxone HCl (Narcan Inj) 0.1 mg IV.PUSH Q2M PRN PRN Reason: for opiate reversal Nicotine (Habitrol 14 Mg Patch.24 Hr) 1 patch T-DERMAL DAILY [facility] Last Admin: 04/05/18 08:30 Dose: 1 patch Ondansetron HCl (Zofran Inj) 4 mg IV.PUSH Q6H PRN PRN Reason: NAUSEA Last Admin: 04/04/18 18:32 Dose: 4 mg Ondansetron HCl (Zofran Odt) 4 mg PO Q6H PRN PRN Reason: NAUSEA OR VOMITING Oxycodone/Acetaminophen (Percocet 5/325 Mg) 2 tab PO Q4H PRN PRN Reason: PAIN SCALE 6 TO 10 Senna/Docusate Sodium (Ayanna-Colace) 1 tab PO BID [facility] Last Admin: 04/05/18 08:29 Dose: 1 tab Sennosides (Senokot) 17.2 mg PO Q12H PRN PRN Reason: Moderate Constipation Sodium Chloride (Ns Flush) 2 ml IV.FLUSH BID [facility] Sodium Chloride (Ns Flush) 2 ml IV.FLUSH PRN PRN PRN Reason: FLUSH AFTER USING IV ACCESS Witch Elsy/Glycerin (Tucks Pads) 1 applicatio RECTAL QID PRN PRN Reason: HEMORRHOIDS Last Admin: 04/05/18 02:13 Dose: 1 applicatio Zolpidem Tartrate (Ambien) 5 mg PO HS PRN PRN Reason: SLEEP Assessment and Plan - Plan 28 yo female s/p , PPD 1 - AFVSS - Continue routine care - Motrin PRN pain - Encourage OOB - Pelvic rest x 6 wks. - Contraception: IUD, will discuss with OB provider - Anticipate D/C 1-2 days - Attending Attestation The exam, history, and the medical decision-making described in the above note were completed with the assistance of the resident physician. I reviewed and agree with the findings presented. I attest that I had a [id number] encounter with the patient on the same day, and personally performed and documented my assessment and findings in the medical record.
[2018-04-06] MEDS: Senna/Docusate Sodium 8.6/50 MG Tablet PO SCH (08:05)
--- NOTE | 2018-04-06 09:35 | P.PNOB ---
Subjective Interval history: 28 year old female s/p at 41 wks gestation, PPD2. AFVSS. Patient reports she is feeling well. Bleeding is decreasing and pain is well- controlled. She is bottle feeding and bonding well with baby. Ambulating without difficulties. She is tolerating a diet without nausea or vomiting. She has not had a bowel movement. She has passed gas. Denies chest pain, dysuria, shortness of breath, or calf pain. Objective Vital Signs/I&O: Vital Signs 04/05/18 16:57 04/05/18 20:00 04/06/18 08:10 Temperature 97.8 F 98.2 F 97.8 F Pulse Rate 88 72 72 Respiratory Rate 16 18 16 Blood Pressure 125/91 H 112/75 101/77 Result Diagrams: 04/04/18 10:40 Objective Remarks: GENERAL: Well-nourished, well-developed patient. CARDIOVASCULAR: Regular rate and rhythm without murmurs, gallops, or rubs. RESPIRATORY: Breath sounds equal bilaterally. No accessory muscle use. ABDOMEN/GI: Abdomen soft, non-tender. Fundus: Firm, non-tender at umbilicus. GENITOURINARY: Light to moderate bleeding. EXTREMITIES: No cyanosis or edema, non-tender, without signs of DVT. Medications and IVs: Active Medications Acetaminophen (Tylenol) 650 mg PO Q4H PRN PRN Reason: PAIN SCALE 1 TO 2 Last Admin: 04/05/18 08:29 Dose: 650 mg Al Hydroxide/Mg Hydroxide (Milk Of Magnesia Liq) 30 ml PO Q12H PRN PRN Reason: Mild Constipation Benzocaine (Americaine 20% Top [place]) 1 spray TOPICAL Q4H PRN PRN Reason: For Perineum Discomfort Last Admin: 04/05/18 02:14 Dose: 1 spray Bisacodyl (Dulcolax Supp) 10 mg RECTAL DAILY PRN PRN Reason: SEVERE CONSITIPATION Citric Acid/Sodium Citrate (Sodium Citrate/Citric Acid Liq) 30 ml PO [facility] Stop: 04/08/18 10:29 Fentanyl Citrate (Fentanyl Inj) 100 mcg IV.PUSH Q1H PRN PRN Reason: PAIN SCALE 6 TO 10 Fentanyl Citrate (Fentanyl Inj) 50 mcg IV.PUSH Q1H PRN PRN Reason: Pain Scale 3 - 5 Lactated Ringer's (Lr 1000 Ml Inj) 1,000 mls @ 125 mls/hr IV.CONT .Q8H [facility] Last Admin: 04/06/18 08:04 Dose: Not Given Lactated Ringer's (Lr 1000 Ml Inj) 1,000 mls @ 3,000 mls/hr IV.SIG UNSCH PRN PRN Reason: compromise or epidural Last Admin: 04/04/18 12:12 Dose: 3,000 mls/hr Sodium Chloride (Ns Inj) 500 mls @ 1,000 mls/hr IV.SIG UNSCH PRN PRN Reason: SEE LABEL COMMENTS Sodium Chloride (Ns Inj) 1,000 mls @ 100 mls/hr IV.CONT .Q10H PRN PRN Reason: SEE LABEL COMMENTS Oxytocin (Pitocin 30 Units/Ns 500 Ml Premix) 30 units in 500 mls @ 2 mls/hr IV.SIG TITRATE PRN; Protocol PRN Reason: For induction of labor Last Admin: 04/04/18 13:05 Dose: 2 milliunit/min, 2 mls/hr Fentanyl/Bupivacaine/Sodium Chlor (Fentanyl 2 Mcg-Bupiv 0.125% Epi) 150 mls @ 12 mls/hr EPIDURAL UNSCH PRN PRN Reason: for Labor Pain Oxytocin (Pitocin 30 Units/Ns 500 Ml Premix) 30 units in 500 mls @ 100 mls/hr IV.CONT UNSCH PRN PRN Reason: Heavy bleeding Ibuprofen (Motrin) 800 mg PO Q8H PRN PRN Reason: For Cramping Last Admin: 04/06/18 08:04 Dose: 800 mg Lactulose (Lactulose Liq) 30 ml PO DAILY PRN PRN Reason: SEVERE CONSITIPATION Lidocaine HCl (Xylocaine 1% Inj) 0.1 ml I-DERMAL PRN PRN PRN Reason: For IV start Stop: 04/07/18 10:19 Lidocaine HCl (Xylocaine 1% Inj) 10 ml INFILTRATN PRN PRN PRN Reason: For episiotomy repair Stop: 04/06/18 10:19 Mineral Oil (Muri-Lube Oil) 10 ml TOPICAL PRN PRN PRN Reason: PRN perineal massage Naloxone HCl (Narcan Inj) 0.1 mg IV.PUSH Q2M PRN PRN Reason: for opiate reversal Naloxone HCl (Narcan Inj) 0.1 mg IV.PUSH Q2M PRN PRN Reason: for opiate reversal Nicotine (Habitrol 14 Mg Patch.24 Hr) 1 patch T-DERMAL DAILY [facility] Last Admin: 04/06/18 08:05 Dose: 1 patch Ondansetron HCl (Zofran Inj) 4 mg IV.PUSH Q6H PRN PRN Reason: NAUSEA Last Admin: 04/04/18 18:32 Dose: 4 mg Ondansetron HCl (Zofran Odt) 4 mg PO Q6H PRN PRN Reason: NAUSEA OR VOMITING Oxycodone/Acetaminophen (Percocet 5/325 Mg) 2 tab PO Q4H PRN PRN Reason: PAIN SCALE 6 TO 10 Last Admin: 04/06/18 07:44 Dose: 2 tab Senna/Docusate Sodium (Ayanna-Colace) 1 tab PO BID [facility] Last Admin: 04/06/18 08:05 Dose: 1 tab Sennosides (Senokot) 17.2 mg PO Q12H PRN PRN Reason: Moderate Constipation Sodium Chloride (Ns Flush) 2 ml IV.FLUSH BID [facility] Last Admin: 04/06/18 05:03 Dose: Not Given Sodium Chloride (Ns Flush) 2 ml IV.FLUSH PRN PRN PRN Reason: FLUSH AFTER USING IV ACCESS Witch Elsy/Glycerin (Tucks Pads) 1 applicatio RECTAL QID PRN PRN Reason: HEMORRHOIDS Last Admin: 04/05/18 02:13 Dose: 1 applicatio Zolpidem Tartrate (Ambien) 5 mg PO HS PRN PRN Reason: SLEEP Assessment and Plan - Plan 28 yo female s/p , PPD 2 - AFVSS - Continue routine care - Motrin PRN pain - Encourage OOB - Pelvic rest x 6 wks. - Contraception: IUD, will discuss with OB provider - Anticipate discharge today - Discussed with Dr. Lewis
== END 2018-04-06 14:02 | disposition home or self-care (01) ==
LOC: HOBED 09:48 → H2E 10:35 → H1EA 04-05 01:07
PROVIDERS: ADMIT Obstetrics & Gynecology; ATTEND Obstetrics & Gynecology